=== PATIENT | female | born 1970 | race Caucasian/White ===

== ENCOUNTER → 2019-02-22 | Outpatient (CLI) | payer OTHER ==
--- NOTE | 2019-02-22 14:49 | RADIOLOGY IMAGING REPORT ---
FACILITY: [facility] - [place] PATIENT NAME: Dayna Ford : 1970 MR: [id number] V: [id number] EXAM DATE: ORDERING PHYSICIAN: THOMAS WILLIS TECHNOLOGIST: Location: [facility] Patient: Dayna Ford : 1970 Visit/Account:[id number] Date of Sevice: 02/22/2019 Exam type: ANKLE 2 VIEW LEFT, FOOT 2 VIEW LEFT History: ] Fracture of the left foot 2011, possible hardware complication Comparison: None. Findings: Left ankle: Some degenerative changes are noted involving the left ankle. Tibiotalar joint aligns appropriately. Soft tissues demonstrate some calcification anteriorly on the lateral view. Prominent calcaneal he el spur is noted. Left foot: Postoperative changes are noted involving the 1st and 2nd metatarsals and 1st and 2nd cuboid. Compre ssion plates involving the 1st and 2nd metatarsals are noted without hardware complication. Cortical screw traverses the 1st and 2nd cuboid. The head of the screw does not completely abut the 1st cubo id but I have no priors for comparison to suggest the screw is backing out. Otherwise, degenerative changes are noted involving the IP joint of the great toe. IMPRESSION: 1. No acute osseous abnormality of the left ankle. 2. Dystrophic appearing calcification anterior to the tibia. 3. Postoperative changes are noted involving the 1st and 2nd metatarsals and 1st and 2nd cuboids fro m prior fusion. The head of the transcortical screw traversing the 1st and 2nd cuboids does not comp letely abut the cuboid of uncertain chronicity. I have no baseline for comparison. Report Dictated By: Harsha Cai MD at 02/22/2019 2:39 PM Report E-Signed By: Harsha Cai MD at 02/22/2019 2:44 PM WSN:[email or web address]
--- NOTE | 2019-02-22 14:50 | RADIOLOGY IMAGING REPORT ---
FACILITY: [facility] PATIENT NAME: Dayna Ford : 1970 MR: [id number] V: [id number] EXAM DATE: ORDERING PHYSICIAN: THOMAS WILLIS TECHNOLOGIST: Location: [facility] [place] Patient: Dayna Ford : 1970 Visit/Account:[id number] Date of Sevice: 02/22/2019 Exam type: ANKLE 2 VIEW LEFT, FOOT 2 VIEW LEFT History: ] Fracture of the left foot 2011, possible hardware complication Comparison: None. Findings: Left ankle: Some degenerative changes are noted involving the left ankle. Tibiotalar joint aligns appropriately. Soft tissues demonstrate some calcification anteriorly on the lateral view. Prominent calcaneal he el spur is noted. Left foot: Postoperative changes are noted involving the 1st and 2nd metatarsals and 1st and 2nd cuboid. Compre ssion plates involving the 1st and 2nd metatarsals are noted without hardware complication. Cortical screw traverses the 1st and 2nd cuboid. The head of the screw does not completely abut the 1st cubo id but I have no priors for comparison to suggest the screw is backing out. Otherwise, degenerative changes are noted involving the IP joint of the great toe. IMPRESSION: 1. No acute osseous abnormality of the left ankle. 2. Dystrophic appearing calcification anterior to the tibia. 3. Postoperative changes are noted involving the 1st and 2nd metatarsals and 1st and 2nd cuboids fro m prior fusion. The head of the transcortical screw traversing the 1st and 2nd cuboids does not comp letely abut the cuboid of uncertain chronicity. I have no baseline for comparison. Report Dictated By: Harsha Cai MD at 02/22/2019 2:39 PM Report E-Signed By: Harsha Cai MD at 02/22/2019 2:44 PM WSN:[email or web address]
== END ==
LOC: MAMO 01:07
PROVIDERS: ATTEND Nurse Practitioner Family
DX: Z12.31 Encounter for screening mammogram for malignant neoplasm of breast (principal); S92.902S Unspecified fracture of left foot, sequela
CPT/HCPCS: 77063; 77067